=== PATIENT | male | born 1965 | race Caucasian/White ===

== ENCOUNTER 2020-08-15 06:56 | Day surgery (SDC) | payer OTHER ==
--- NOTE | 2020-08-13 13:42 | PCM.SN.2 ---
- Free Text/Narrative Note: Date: 08/15/2020 Time Out: 725 Start: 725 Stop: 741 Surgical Procedure: Right shoulder video arthroscopy with rotator cuff repair, biceps tenotomy and subacromial decompression Diagnosis Right shoulder rotator cuff tear Current Procedure: Right interscalene block under US guidance for postoperative pain control requested by Dr. Rodriguez. Patient chart reviewed, risk/benefits discussed with patient, consent obtained. Patient positioned supine, monitors/alarms on, oxygen placed via nasal cannula at 2 LPM. IV sedation administered: Versed 2mg IV, Fentanyl 50mcg IV given in preop prior to block placement. Right shoulder prepped with two chloropreps. Sterile drapes placed with aseptic technique noted. Under US guidance, right subclavian artery visualized along with the right brachial plexus. Plexus followed up to C6 cricoid level, and area localized with 2mls of 1% lidocaine. 22gauge 2 inch stimiplex needle advanced under US with 0.6mV with stimulation of biceps noted. Good stimulation noted with decreased voltage and absent at 0.3mVs. 1ml of Normal Saline injected with loss of stimulation noted to confirm needle not placed intraneurally. Incremental dosing of 5mls with negative aspiration noted prior to each injection of 0.5% ropivacaine with 1:200,000 epinephrine. Total volume=30mls. Patient did have a vagal maneuver during procedure with HR dropping down to 38- 40. Robynol 0.2mg IV given. Please refer to nurses noted for vital signs. Gita Siddiqui CRNA
--- NOTE | 2020-08-13 14:37 | PCM.PREANE ---
Preanesthetic Assessment - Procedure Proposed Procedure: Right Shoulder Video Arthroscopy with rotator cuff repair, biceps tenotomy, and subacromial decompression - Anesthesia/Transfusion/Family Hx Anesthesia History: Prior Anesthesia Without Reaction Family History of Anesthesia Reaction: No Transfusion History: No Prior Transfusion(s) Intubation History: Unknown - Review of Systems General: No Symptoms Pulmonary: No Symptoms (Bronchitis: one year ago Former smoker: quit 1996/fake chew taken yesterday/ETOH twice per week.) Cardiovascular: Lightheadedness (positional changes) Gastrointestinal: No Symptoms, Diarrhea, Nausea Neurological: No Symptoms, Headache (Migraines), Numbness (right hand) Other: Reports: Neck Pain - Physical Assessment NPO Status Date: 08/14/20 NPO Status Time: 20:00 Vital Signs: HR: Sat: Temp: Resp: B/P: Height: 1.73 m Weight: 84 kg ASA Class: 1 Mental Status: Alert & Oriented x3 Airway Class: Mallampati = 2 Dentition: Reports: Normal Dentition, Implants, Caries Thyro-Mental Finger Breadths: 3 Mouth Opening Finger Breadths: 3 ROM/Head Extension: Full Lungs: Clear to Auscultation, Normal Respiratory Effort Cardiovascular: Regular Rate, Regular Rhythm, No Murmurs - Lab Values: Laboratory Last Values SARS-CoV-2 (PCR) Not detected (NOT DETECT) 07/29/20 12:30 MRSA (PCR) Negative 08/13/20 09:13 All labs reviewed and noted and within acceptable ranges to proceed with scheduled procedure. - Allergies Allergies/Adverse Reactions: Allergies Allergy/AdvReac Type Severity Reaction Status Date / Time animal dander Allergy Sneezing Verified 08/14/20 13:09 - Anesthesia Plan Pre-Op Medication Ordered: None - Acknowledgements Anesthesia Type Planned: General Anesthesia (Right ISB under US guidance for post operative pain control requested by Dr. Rodriguez.) Pt an Appropriate Candidate for the Planned Anesthesia: Yes Alternatives and Risks of Anesthesia Discussed w Pt/Guardian: Yes Pt/Guardian Understands and Agrees with Anesthesia Plan: Yes PreAnesthesia Questionnaire Other Musculoskeletal History: torn medial meniscus left knee. some shoulder arthritis, takes Celebrex daily - Past Surgical History Other HEENT Surgeries/Procedures: tooth implant - HOME MEDS Home Medications: Home Meds Acetaminophen [Tylenol] 650 mg PO Q4H PRN 08/14/20 [History] Ibuprofen 600 mg PO Q6H PRN 08/14/20 [History] Acetaminophen/HYDROcodone [[place] 325-5 MG] 1 - 2 tab PO Q6H PRN #30 tablet 08/15/20 [Rx] Cyclobenzaprine [Flexeril] 10 mg PO BID PRN #20 tab 08/15/20 [Rx] - CURRENT (IN HOUSE) MEDS Current Meds: Current Medications Discontinued Medications Lactated Ringer's (Ringers, Lactated) 1,000 mls @ 125 mls/hr IV ASDIRECTED UVALDO Stop: 07/31/20 23:00 Lidocaine/Sodium Bicarbonate (Buffered Lidocaine 1% In Ns 8.4%) 0.25 ml IDERM ONETIME PRN PRN Reason: Prior to IV Start Stop: 07/31/20 23:00 Sodium Chloride (Saline Flush) 10 ml FLUSH ASDIRECTED PRN PRN Reason: Keep Vein Open Stop: 07/31/20 23:00
[~2020-08-15 06:56] MED LIST: Dexamethasone 4 MG/ML 5 ML MDV ONE; EPINEPHrine 1 MG/ML 30 ML MDV IRR SCH; EPINEPHrine 1 MG/ML SDV ONE; Ketorolac 30 MG/ML SDV ONE; Lactated Ringers 1,000 ML IV SCH; Lactated Ringers 1,000 ML ONE; Lidocaine 1% 2 ML ONE; Lidocaine 1% 4 ML ONE; Lidocaine 1%/Sod Bicarbonate in NS 8.4% 1 ML Syringe IDERM PRN; Midazolam 1 MG/ML 2 ML SDV ONE; Ondansetron 4 MG/2 ML SDV ONE; Propofol 200 MG/20 ML SDV ONE; Rocuronium 50 MG/5 ML Vial ONE; Ropivacaine 0.5% 5 MG/ML 30 ML SDV ONE; Sodium Chloride 0.9% 10 ML Syringe FLUSH PRN; ceFAZolin 1 GM Vial ONE; fentaNYL 250 MCG/5 ML SDV ONE
[2020-08-15] MEDS ORDERED: Ondansetron 4 MG/2 ML SDV IVPUSH PRN (07:50)
[2020-08-15] MEDS ORDERED: HYDROmorphone 0.5 MG/0.5 ML Syringe IVPUSH PRN (07:50)
[2020-08-15] MEDS ORDERED: diphenhydrAMINE 50 MG/ML SDV IVPUSH PRN (07:50)
[2020-08-15] MEDS ORDERED: fentaNYL 100 MCG/2 ML SDV IVPUSH PRN (07:50)
[2020-08-15] MEDS ORDERED: ePHEDrine 50 MG/ML SDV IVPUSH PRN (07:50)
[2020-08-15] MEDS ORDERED: Meperidine 50 MG/ML Vial ONE (09:57)
--- NOTE | 2020-08-15 10:16 | PCM.POSTAN ---
POST ANESTHESIA ASSESSMENT - MENTAL STATUS Mental Status: Alert - VITAL SIGNS Vital Signs: Last Vital Signs Temp 97.6 08/15/20 1000 Pulse 71 08/15/20 1000 Resp 12 08/15/20 1000 BP 127/80 08/15/20 1000 Pulse Ox 96% 08/15/20 1000 - RESPIRATORY Respiratory Status: Respiratory Rate WNL, Airway Patent, O2 Saturation Stable, Supplemental Oxygen - CARDIOVASCULAR CV Status: Pulse Rate WNL, Blood Pressure Stable - GASTROINTESTINAL GI Status: No Symptoms - POST OP HYDRATION Hydration Status: Adequate & Stable
[2020-08-15] MEDS ORDERED: Lidocaine 1% 4 ML ONE (10:44)
[2020-08-15] MEDS ORDERED: Ropivacaine 0.5% 5 MG/ML 30 ML SDV ONE (10:45)
[2020-08-15] MEDS ORDERED: EPINEPHrine 1 MG/ML SDV ONE (10:45)
--- NOTE | 2020-08-15 11:52 | PCM48HPAN ---
Post Anesthesia Note - EVALUATION WITHIN 48HRS OF ANESTHETIC Vital Signs in Normal Range: Yes Patient Participated in Evaluation: Yes Respiratory Function Stable: Yes Airway Patent: Yes Cardiovascular Function Stable: Yes Hydration Status Stable: Yes Pain Control Satisfactory: Yes Nausea and Vomiting Control Satisfactory: Yes Mental Status Recovered: Yes Vital Signs: Last Vital Signs Temp 36.2 C 08/15/20 11:00 Pulse 59 L 08/15/20 11:00 Resp 16 08/15/20 11:00 BP 125/84 08/15/20 11:00 Pulse Ox 93 L 08/15/20 11:00
[2020-08-15 12:33] VITALS: BP 121/67; PULSE 68
--- NOTE | 2020-08-21 13:27 | PCM.OPNOTE ---
- General Post-Op/Procedure Note Date of Surgery/Procedure: 08/15/20 Operative Procedure(s): right shoulder video arthroscopy with rotator cuff repair, subacromial decompression, biceps tenotomy and superior labral repair Pre Op Diagnosis: right shoulder rotator cuff tear with impingement and biceps tendinopathy Post-Op Diagnosis: same with superior labral tear Anesthesia Technique: General ET Tube, Regional Block Primary Surgeon: Samson Rodriguez Anesthesia Provider: Gita Siddiqui Vector Control Assistant: Sarah Olmos EBSharona in mLs: 5 Complications: None Condition: Good
--- NOTE | 2020-08-22 11:01 | OR ---
DATE OF OPERATION: 08/15/2020 SURGEON: Samson Rodriguez MD OPERATION PERFORMED: Right shoulder video arthroscopy with rotator cuff repair, subacromial decompression, biceps tenotomy, and superior labral repair. PREOPERATIVE DIAGNOSIS: 1. Right shoulder rotator cuff tear with impingement. 2. Biceps tendinopathy. POSTOPERATIVE DIAGNOSIS: 1. Right shoulder rotator cuff tear with impingement. 2. Biceps tendinopathy. 3. Superior labral tear. ANESTHESIA: General endotracheal intubation with regional interscalene block. ANESTHESIA PROVIDER: Gita Siddiqui CRNA LINE ASSEMBLY UTILITY WORKER: Sarah Olmos PA-C ESTIMATED BLOOD LOSS: 5 mL. COMPLICATIONS: None. CONDITION: Stable. DESCRIPTION OF PROCEDURE: The patient was identified in the preoperative holding area. Proper site was marked and identified by the surgeon. The patient was taken back to the operative theater where, after adequate anesthesia, the patient was placed in the lazy left lateral decubitus position. A wedge was placed posteriorly. The patient was secured to the table. All bony prominences were well padded. At this time, the right upper extremity was then sterilely prepped and draped in the usual sterile fashion. OR time-out was performed. The patient received 2 g of IV Ancef. 12 pounds of traction was applied to the right upper extremity. Standard posterior incision was made. Scope trocar was introduced to the glenohumeral joint. At this time, with the use of spinal needle, anterior portal was then created. The patient was noted to have significant biceps tendinopathy as well as fraying at the attachment of the labrum with thickening. The patient was also noted to have a peel-back of the superior labrum indicative of a small type 2 SLAP tear. At this time, secondary to the patient's age and activity level, it was decided to do a tenotomy as well as securing the superior labrum for no future pathology to the superior labrum with anchors. At this time, a biceps tenotomy was performed, and debridement was done of all synovitis as well as debridement of the attachment near the labrum. The superior border of the glenoid was then roughened, and good bony bleeding bed was made. Then, a single Arthrex 2.7 mm PushLock anchor was then placed and secured the superior labrum to the superior rim of the glenoid. The subscapularis tendon was intact. The patient was noted to have tearing of the anterior portion of the supraspinatus. There were no signs of chondromalacia at this time. Scope trocar was placed in the subacromial space, and a debridement was done of the subacromial space. The patient was noted to have a type 2 acromion, and a subacromial decompression and acromioplasty was performed at this time back to a smooth border with the posterior rim. The tear was identified. A 4-0 full- radius josey was used to create a good bony bleeding bed. At this time, 2 [place] medial row all suture anchors were placed, and then 12 limbs of suture were put through the tear starting anteriorly, going all the way posteriorly. Two Arthrex lateral row anchors were then placed laterally in a crosswise fashion with the suture, taking 6 limbs out both to anterior and then posterior in the lateral anchors. The patient had good convergence of the tear along with good compression across the tear site. At this time, excess saline was drained from the shoulder. A 3-0 nylon suture was used for closure of the skin. The patient was placed in a sterile soft dressing and a pillow sling and sent to PACU in stable condition. LAVERNE /[id number]
== END 2020-08-15 12:15 | disposition home or self-care (01) ==
LOC: JD.SDS 06:56
PROVIDERS: ATTEND Orthopaedic Surgery
DX: M75.101 Unspecified rotator cuff tear or rupture of right shoulder, not specified as traumatic (principal); M25.811 Other specified joint disorders, right shoulder; M67.813 Other specified disorders of tendon, right shoulder; S43.431A Superior glenoid labrum lesion of right shoulder, initial encounter; Z01.812 Encounter for preprocedural laboratory examination; Z20.828 Contact with and (suspected) exposure to other viral communicable diseases; Z87.891 Personal history of nicotine dependence; X58.XXXA Exposure to other specified factors, initial encounter
CPT/HCPCS: 29807; 29823; 29826; 29827; 87635; 87641; C1713; J0171; J0690; J1100; J1885; J2001; J2175; J2250; J2405; J2704; J2710; J2795; J3010; J7120; 01630; 64415; U0002

== ENCOUNTER 2021-05-25 10:22 | Emergency (ER) | payer OTHER ==
[2021-05-25] MEDS ORDERED: Sodium Chloride 0.9% 10 ML Syringe FLUSH PRN (10:42)
[2021-05-25] MEDS ORDERED: Aspirin 81 MG Tab.Chew PO ONE (10:42)
--- NOTE | 2021-05-25 11:19 | EDM.PDOC ---
ED HPI GENERAL MEDICAL PROBLEM - General Chief Complaint: Chest Pain Stated Complaint: CHEST PAIN Time Seen by Provider: 05/25/21 10:31 Source of Information: Reports: Patient History Limitations: Reports: No Limitations - History of Present Illness INITIAL COMMENTS - FREE TEXT/NARRATIVE: The patient presents with left ches pain. This started weeks ago. It is there every day. Exertion does not make it worse. He had some shortness of breath with it today. He had some nausea today. He has no fever, chills, cough, abdominal pain, nausea or vomiting. He has no history of heart disease. He quit smoking years ago. He has no history of hypertension, or hypercholesterolemia. He had something similar happen 20 years ago. I twas not his heart at that time. Onset: Gradual Duration: Week(s): Location: Reports: Chest Quality: Reports: Other (Tightness) Severity: Moderate Improves with: Reports: None Worsens with: Reports: None Associated Symptoms: Reports: Chest Pain, Shortness of Breath. Denies: Cough, Fever/Chills, Headaches, Nausea/Vomiting Left Chest Pain Score (Numeric/FACES): 4 - Related Data Allergies Allergy/AdvReac Type Severity Reaction Status Date / Time animal dander Allergy Sneezing Verified 05/25/21 10:37 latex Allergy Rash Verified 05/25/21 10:37 Home Meds: Home Meds Acetaminophen [Tylenol] 650 mg PO Q4H PRN 08/14/20 [History] Ibuprofen 600 mg PO Q6H PRN 08/14/20 [History] Acetaminophen/HYDROcodone [[place] 325-5 MG] 1 - 2 tab PO Q6H PRN #30 tablet 08/15/20 [Rx] Past Medical History HEENT History: Reports: Impaired Vision Other HEENT History: wears reading eyeglasses. Cardiovascular History: Reports: None Respiratory History: Reports: Bronchitis, Recurrent Gastrointestinal History: Reports: None Genitourinary History: Reports: None OTHER SPATIAL SCIENTIST History: Reports: None Other Musculoskeletal History: torn medial meniscus left knee. some shoulder arthritis, takes Celebrex daily Neurological History: Reports: None Psychiatric History: Reports: None Endocrine/Metabolic History: Reports: None Hematologic History: Reports: None Immunologic History: Reports: None Oncologic (Cancer) History: Reports: None Dermatologic History: Reports: None - Infectious Disease History Infectious Disease History: Reports: Chicken Pox, Influenza - Past Surgical History Other HEENT Surgeries/Procedures: tooth implant Cardiovascular Surgical History: Reports: None GI Surgical History: Reports: Colonoscopy Musculoskeletal Surgical History: Reports: Arthroscopic Knee, Shoulder Surgery Social & Family History - Tobacco Use Tobacco Use Status *Q: Former Tobacco User Used Tobacco, but Quit: Yes Month/Year Tobacco Last Used: Nov 2000 - Caffeine Use Caffeine Use: Reports: Coffee, Soda - Alcohol Use Days Per Week of Alcohol Use: 2 Number of Drinks Per Day: 4 Total Drinks Per Week: 8 - Recreational Drug Use Recreational Drug Use: No ED ROS GENERAL - Review of Systems Review Of Systems: See Below Constitutional: Reports: No Symptoms HEENT: Reports: No Symptoms Respiratory: Reports: Shortness of Breath. Denies: Cough Cardiovascular: Reports: Chest Pain Endocrine: Reports: No Symptoms GI/Abdominal: Reports: No Symptoms : Reports: No Symptoms Musculoskeletal: Reports: No Symptoms ED EXAM, GENERAL - Physical Exam Exam: See Below Exam Limited By: No Limitations General Appearance: Alert, No Apparent Distress Ears: Normal External Exam Nose: Normal Inspection Head: Atraumatic, Normocephalic Neck: Normal Inspection Respiratory/Chest: No Respiratory Distress, Lungs Clear, Normal Breath Sounds Cardiovascular: Regular Rate, Rhythm, No Edema, No Murmur GI/Abdominal: Soft, Non-Tender, No Organomegaly, No Mass Back Exam: Normal Inspection Extremities: Normal Inspection #1 Interpretation EKG Date: 05/25/21 Time: 10:28 Rhythm: NSR Rate (Beats/Min): 59 [place]: Normal P-Wave: Present QRS: Normal ST-T: Normal QT: Normal Course - Vital Signs Last Recorded V/S: Last Vital Signs Temp 97.2 F 05/25/21 10:25 Pulse 68 05/25/21 10:25 Resp 18 05/25/21 10:25 BP 140/82 05/25/21 10:25 Pulse Ox 97 05/25/21 10:25 - Orders/Labs/Meds Orders: Active Orders 24 hr Category Date Time Status Cardiac Monitoring [RC] . DIRECTED Care 05/25/21 10:42 Active EKG Documentation Completion [RC] STAT Care 05/25/21 10:42 Active Peripheral IV Care [RC] . DIRECTED Care 05/25/21 10:42 Active Chest 2V [CR] Stat Exams 05/25/21 10:42 Taken Sodium Chloride 0.9% [Saline Flush] Med 05/25/21 10:42 Active 10 ml FLUSH ASDIRECTED PRN Peripheral IV Insertion Adult [OM.PC] Stat Oth 05/25/21 10:42 Ordered Medication Orders Sodium Chloride (Sodium Chloride 0.9% 10 Ml Syringe) 10 ml FLUSH ASDIRECTED PRN PRN Reason: Keep Vein Open Last Admin: 05/25/21 10:35 Dose: 10 ml Documented by: HANNAH Labs: Laboratory Tests 05/25/21 05/25/21 05/25/21 Range/Units 10:32 10:32 10:32 WBC 5.09 (4.23-9.07) K/mm3 RBC 5.03 (4.63-6.08) M/mm3 Hgb 15.6 (13.7-17.5) gm/dl Hct 46.0 (40.1-51.0) % MCV 91.5 (79.0-92.2) fl MCH 31.0 (25.7-32.2) pg MCHC 33.9 (32.2-35.5) g/dl RDW Std Deviation 46.1 H (35.1-43.9) fL Plt Count 328 (163-337) K/mm3 MPV 10.6 (9.4-12.3) fl Neut % (Auto) 58.7 (34.0-67.9) % Lymph % (Auto) 28.5 (21.8-53.1) % [place] % (Auto) 10.4 (5.3-12.2) % Eos % (Auto) 1.2 (0.8-7.0) Baso % (Auto) 1.0 (0.1-1.2) % Neut # (Auto) 2.99 (1.78-5.38) K/mm3 Lymph # (Auto) 1.45 (1.32-3.57) K/mm3 [place] # (Auto) 0.53 (0.30-0.82) K/mm3 Eos # (Auto) 0.06 (0.04-0.54) K/mm3 Baso # (Auto) 0.05 (0.01-0.08) K/mm3 D-Dimer, Quantitative < 0.19 L (0.19-0.50) mg/L Sodium 142 (136-145) mEq/L Potassium 4.1 (3.5-5.1) mEq/L Chloride 106 (98-107) mEq/L Carbon Dioxide 28 (21-32) mEq/L Anion Gap 12.1 (5-15) BUN 18 (7-18) mg/dL Creatinine 1.0 (0.7-1.3) mg/dL Est Cr Clr Drug Dosing 81.70 mL/min Estimated GFR (MDRD) > 60 (>60) mL/min BUN/Creatinine Ratio 18.0 (14-18) Glucose 96 (70-99) mg/dL Calcium 8.9 (8.5-10.1) mg/dL Total Bilirubin 1.4 H (0.2-1.0) mg/dL AST 27 (15-37) U/L ALT 34 (16-63) U/L Alkaline Phosphatase 66 (46-116) U/L Troponin I < 0.017 (0.00-0.056) ng/mL Total Protein 6.7 (6.4-8.2) g/dl Albumin 3.9 (3.4-5.0) g/dl Globulin 2.8 gm/dL Albumin/Globulin Ratio 1.4 (1-2) Meds: Medications Generic Name Dose Route Start Last Admin Trade Name Freq PRN Reason Stop Dose Admin Sodium Chloride 10 ml 05/25/21 10:42 05/25/21 10:35 Sodium Chloride 0.9% 10 Ml Syringe FLUSH 10 ml ASDIRECTED PRN Administration Keep Vein Open Discontinued Medications Generic Name Dose Route Start Last Admin Trade Name [place] PRN Reason Stop Dose Admin Aspirin 324 mg 05/25/21 10:42 05/25/21 10:59 Aspirin 81 Mg Tab.Chew PO 05/25/21 10:43 324 mg ONETIME ONE Administration - Re-Assessments/Exams Free Text/Narrative Re-Assessment/Exam: 05/25/21 11:20 I ordered an IV saline lock, EKG, CXR, aspirin 324mg by mouth, and labs. His EKG shows a NSR with no acute changes. His CXR looks good. His labs look good including his troponin and D-dimer. Departure - Departure Time of Disposition: 11:45 Disposition: Home, Self-Care 01 Condition: Good Clinical Impression: Atypical chest pain Referrals: Trent Lr MD [Primary Care Provider] - 1 Week Forms: ED Department Discharge Additional Instructions: Take tylenol or motrin as needed for pain. Follow up with Dr Lr within a week. Please return if you are worse. Sepsis Event Note (ED) - Evaluation Sepsis Screening Result: No Definite Risk - Focused Exam Vital Signs: Vital Signs Temp Pulse Resp BP Pulse Ox 05/25/21 10:25 97.2 F 68 18 140/82 97 - My Orders Last 24 Hours: My Active Orders 05/25/21 10:42 Cardiac Monitoring [RC] . DIRECTED EKG Documentation Completion [RC] STAT Peripheral IV Care [RC] . DIRECTED Chest 2V [CR] Stat Sodium Chloride 0.9% [Saline Flush] 10 ml FLUSH ASDIRECTED PRN Peripheral IV Insertion Adult [OM.PC] Stat - Assessment/Plan Last 24 Hours: My Active Orders 05/25/21 10:42 Cardiac Monitoring [RC] . DIRECTED EKG Documentation Completion [RC] STAT Peripheral IV Care [RC] . DIRECTED Chest 2V [CR] Stat Sodium Chloride 0.9% [Saline Flush] 10 ml FLUSH ASDIRECTED PRN Peripheral IV Insertion Adult [OM.PC] Stat
[2021-05-25 11:54] VITALS: BP 129/80; PULSE 57
--- NOTE | 2021-05-25 11:59 | CR ---
Chest: Frontal and lateral views of the chest were obtained. Comparison: No prior chest imaging is available. Heart size and mediastinum are within normal limits. Lungs are clear with no acute parenchymal change. Slight scoliosis is noted within the spine. Mild scattered degenerative change is seen within the spine. Impression: 1. Spine findings as described above. 2. Nothing acute is seen. Diagnostic code #2
== END 2021-05-25 11:53 | disposition home or self-care (01) ==
LOC: JD.ED 10:22
DX: R07.89 Other chest pain (principal); Z91.09 Other allergy status, other than to drugs and biological substances; Z91.040 Latex allergy status; Z87.891 Personal history of nicotine dependence
CPT/HCPCS: 36415; 71046; 80053; 84484; 85025; 85379; 93005; 99285; A9270; 93010; 99284